=== PATIENT | male | born 2000 | race Two or more races ===

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

== ENCOUNTER 2024-11-19 20:00 | Emergency (ER) | payer OTHER, SELFPAY ==
--- NOTE | ~2024-11-19 | US_ITS ---
CLINICAL HISTORY: Right upper quadrant pain, mild gallbladder wall US abdomen limited Comparison: CT/SR - CT ABDOMEN PELVIS W IV CON - 11/20/24 00:40 EDT Findings: Limited images of the liver are unremarkable. No focal hepatic lesion is seen. There is no bile duct dilation. Common duct measures 5 mm in diameter. There are multiple small stones in the gallbladder. The gallbladder wall edema seen on the CT is not appreciated sonographically. There is no gallbladder wall thickening on ultrasound. The gallbladder is mildly distended. There is no sonographic Winslow sign. No free fluid is seen. IMPRESSION: Cholelithiasis and mild gallbladder distention. No additional findings of acute cholecystitis. Consider hepatobiliary scintigraphy if clinically indicated. This document has been electronically signed by: Fareed Cantu MD on 11/20/2024 03:42:01
--- NOTE | ~2024-11-19 | CT_ITS ---
CLINICAL HISTORY: RUQ, RLQ tenderness, rule out biliary disease, jesus CT abdomen and pelvis with contrast Comparison: None Findings: Lung bases clear. Mildly distended gallbladder. Mild gallbladder wall thickening. No biliary ductal dilatation. Remaining solid organs normal. No free fluid or free air. Stomach and bowel unremarkable. Bones intact. IMPRESSION: Mild gallbladder wall thickening and mild gallbladder distention. Correlate for cholecystitis. This document has been electronically signed by: Bc Butts MD on 11/20/2024 01:22:05
[2024-11-19 20:14] VITALS: BP 149/83; PULSE 81; RESP 16; TEMP 36.8; O2SAT 98; BMI 26.4
--- NOTE | 2024-11-19 20:17 | ED.GENADULT ---
HPI - General Adult General Chief complaint: Abdominal Pain Stated complaint: upper abd pain Time Seen by Provider: 11/19/24 23:17 Source: patient and family (Father, Jordi) Mode of arrival: ambulatory Limitations: no limitations History of Present Illness ED Provider: Dr. Mihir Paul HPI narrative: 24-year-old male who presents emergency department for evaluation of intermittent abdominal pain. The patient states that yesterday afternoon he developed upper abdominal pain. He states that it was a burning sensation and was greater than 10/10. He did have multiple episodes of vomiting yesterday. He states the pain eventually resolved. This morning he again developed abdominal pain in the same area. The pain was a burning sensation greater than 10/10. Patient had 6 episodes of vomiting. He states he has been able to drink fluid and eat but this makes the pain worse. He denied radiation of the pain to his back. He denied fever, chills, diarrhea, dark stools, bloody stools, frequency, urgency or dysuria. Related Data Previous Rx's ?Medication ?Instructions ?Recorded levofloxacin 500 mg tablet 500 mg PO DAILY 3 days #3 tabs 11/23/24 metronidazole 500 mg tablet 500 mg PO BID #10 tabs 11/23/24 Allergies Allergy/AdvReac Type Severity Reaction Status Date / Time amoxicillin Allergy Unknown Verified 11/23/24 14:11 Review of Systems Review of Systems: Yes all other systems are reviewed and are negative PMFSH Past Medical History Medical History (Updated 11/23/24 @ 14:11 by GINI Jean) Anxiety Gallstones Surgical History (Updated 11/23/24 @ 14:11 by GINI Jean) [place] teeth extracted Social History Social History (Updated 11/23/24 @ 14:12 by GINI Jean) Alcohol intake: never Patient Tobacco Use Status: Never used Tobacco Physical Exam ED Vital Signs: Vital Signs - 24 hr 11/19/24 20:14 11/19/24 23:57 11/20/24 01:58 Temperature 98.3 F 98.0 F 97.8 F Pulse Rate 81 73 72 Respiratory Rate 16 18 16 Blood Pressure 149/83 H 131/78 112/60 Pulse Oximetry 98 97 98 Oxygen Delivery Method Room Air Room Air Room Air BMI result Body Mass Index 26.4 Vital signs revealed elevated blood pressure of 149/83 Exam: General: Awake, alert, appears to be in mild distress secondary to his pain Head: Normocephalic, atraumatic EENT: PERRL, Lids normal, sclera normal, conjunctiva normal, nose normal , ears normal, throat without erythema or exudates Neck: Supple, no adenopathy Lung: breath sounds symmetric, no wheezing, rales or rhonchi Chest: symmetric movement, nontender Heart: regular rate and rhythm, normal S1, S2 no murmurs or rubs Abdomen: soft, moderate right upper quadrant tenderness with a positive Winslow sign, mild to moderate right lower quadrant tenderness, no rebound, no voluntary or involuntary guarding, nondistended, normal bowel sounds Back: no vertebral tenderness, no CVAT Extremities: no deformities, moves all extremities symmetrically Neuro: Awake, alert, oriented, normal speech, cranial nerves intact, moves all extremities symmetrically Psych: Pleasant, cooperative Course Course Course Narrative: Medical screening exam performed. Please refer to detailed history, exam, evaluation, and management by primary provider. 24-year-old male with epigastric pain intermittent nausea since yesterday. No tobacco or alcohol use. Labs ordered. Medications Administered Discontinued Medications Generic Name Dose Route Start Last Admin Trade Name Freq PRN Reason Stop Dose Admin Sodium Chloride 1,000 mls @ 999 mls/hr 11/19/24 23:30 11/19/24 23:57 Ns IV 11/20/24 00:30 999 mls/hr .Q1H1M STA Administration Iohexol 85 ml 11/20/24 00:55 11/20/24 00:56 Iohexol 350 Mg/Ml 100 Ml Infus..Btl IV 11/20/24 00:56 85 ml ONCE ONE Administration Ketorolac Tromethamine 15 mg 11/19/24 23:30 11/19/24 23:57 Ketorolac Tromethamine 15 Mg/Ml Vial IVPUSH 11/19/24 23:31 15 mg ONCE STA Administration Ondansetron HCl 4 mg 11/19/24 23:30 11/19/24 23:57 Ondansetron Hcl 4 Mg/2 Ml Vial IVPUSH 11/19/24 23:31 4 mg ONCE ONE Administration Medical Decision Making Medical Decision Making MDM Narrative: 24-year-old male who presents emergency department for evaluation of intermittent abdominal pain with a an episode yesterday and an episode occurring this morning which is ongoing. Patient describes the pain is a burning sensation which is greater than 10/10 associated with nausea and vomiting with no radiation of the pain. Patient states he has been able to eat and drink but this makes the pain worse. Vital signs were normal. Exam did reveal right upper quadrant and right lower quadrant tenderness. Differential diagnosis: ?Includes but is not limited to cholecystitis, biliary colic, gastritis, GERD, appendicitis, pancreatitis, anemia, electrolyte abnormalities Course: 23:38 My interpretation patient's laboratory evaluation is as follows: CBC was normal. CMP revealed an elevated glucose of 140. LFTs were normal. Lipase was normal. Patient he was treated with normal saline IV x1 L, Toradol 15 mg IV and Zofran 4 mg IV. I did order a CT abdomen pelvis with IV contrast to evaluate the patient's pain. 02:[address] scan of the abdomen pelvis is consistent with mild gallbladder wall thickening and mild gallbladder wall distention. I did order a right upper quadrant ultrasound to evaluate for possible gallstones. Patient was feeling significantly better after the above treatment and he was right upper quadrant tenderness is resolved. 04:00 the patient's right upper quadrant ultrasound revealed cholelithiasis and mild gallbladder distention. No additional findings of acute cholecystitis. given this finding of cholelithiasis I suspect the patient has been having biliary colic a but does not have acute cholecystitis at this time. The patient's pain is still present but his right upper quadrant tenderness has resolved. At this time I do not think the patient requires admission but can follow-up with our surgeon on-call, Dr. Jurado is for further evaluation of his abdominal pain and possible need for surgical intervention for biliary colic. Patient was discharged home and advised to take Tylenol and ibuprofen for pain. He was given instructions on low-fat diet and instructions on biliary colic. Admission/Observation Consideration of admission/observation: Escalation of care including admission/observation considered (Yes) Lab Data MDM Lab Attestation statement: I reviewed the patient's lab results. 11/19/24 20:20 11/19/24 20:20 Labs: Lab Results 11/19/24 11/20/24 Range/Units 20:20 00:09 WBC 7.1 (4.8-10.8) X10*3/uL RBC 5.21 (4.60-5.80) X10*6/uL Hgb 15.6 (14.0-18.0) g/dl Hct 43.7 (42.0-52.0) % MCV 83.9 (80.0-98.0) fL MCH 29.9 (27.0-33.0) pg MCHC 35.7 (31.0-36.0) g/dl RDW 12.3 (11.0-16.0) % Plt Count 277 (160-400) X10*3/uL MPV 9.0 L (9.4-12.4) fL Immature Gran % (Auto) 0.1 (0.0-0.4) % Neut % (Auto) 71.9 (45-73) % Lymph % (Auto) 18.8 L (20-40) % [place]ander % (Auto) 8.3 (2-11) % Eos % (Auto) 0.6 (0-4) % Baso % (Auto) 0.3 (0-2) % Lymph # (Auto) 1.3 (1.2-4.9) X10*3/uL [place] # (Auto) 0.6 (0.1-1.2) X10*3/uL Eos # (Auto) 0.0 (0.0-0.4) X10*3/uL Baso # (Auto) 0.0 (0.0-0.2) X10*3/uL Abs Immat Gran (auto) 0.01 (0.00-0.03) X10*3/uL Absolute Neuts (auto) 5.1 (2.0-8.3) x10*3/uL Absolute Nucleated RBC 0.000 (0.0-0.012) X10*3/uL Nucleated RBC % (auto) 0.0 (0.0-0.2) /100WBC Sodium 140 (135-145) mmol/L Potassium 3.7 (3.3-5.1) mmol/L Chloride 106 (96-108) mmol/L Carbon Dioxide 26 (22-29) mmol/L Anion Gap 12 (12-20) BUN 14 (9-16) mg/dL Creatinine 0.79 (0.5-1.4) mg/dL Estim Creat Clear Calc 121.7 Estimated GFR > 60 Random Glucose 140 H (60-115) mg/dL Calcium 9.8 (8.4-10.2) mg/dL Total Bilirubin 0.7 (0.0-1.0) mg/dL AST 21 (5-37) U/L ALT 15 (0-40) U/L Alkaline Phosphatase 55 (39-117) U/L Total Protein 7.8 (6.5-8.0) g/dL Albumin 5.0 (3.5-5.0) g/dL Lipase 28 (8-78) U/L Urine Color Yellow Urine Appearance Turbid Urine pH >= 9.0 (5.0-9.0) Ur Specific [place] 1.025 (1.005-1.025) Urine Protein 30 (1+) H (Neg-Trace) mg/dL Urine Glucose (UA) Negative (Negative) mg/dL Urine Ketones 40 (Negative) mg/dL Urine Blood Trace H (Negative) Urine Nitrite Negative (Negative) Ur Leukocyte Esterase Negative (Negative) Urine RBC >20 H (0-2) /HPF Urine WBC 0-5 (0-5) /HPF Ur Squamous Epith Cells 0-2 (0-2) /HPF Urine Bacteria None Seen (None Seen) Hyaline Casts 0-2 (0-2) /LPF Radiology Impression Discussion of test interpretation with radiology: I have reviewed the radiologist's reading. Radiologist Impression: CT abdomen and pelvis with contrast Comparison: None Findings: Lung bases clear. Mildly distended gallbladder. Mild gallbladder wall thickening. No biliary ductal dilatation. Remaining solid organs normal. No free fluid or free air. Stomach and bowel unremarkable. Bones intact. IMPRESSION: Mild gallbladder wall thickening and mild gallbladder distention. Correlate for cholecystitis. This document has been electronically signed by: Bc Butts MD on 11/20/2024 01:22:05 US abdomen limited Comparison: CT/SR - CT ABDOMEN PELVIS W IV CON - 11/20/24 00:40 EDT Findings: Limited images of the liver are unremarkable. No focal hepatic lesion is seen. There is no bile duct dilation. Common duct measures 5 mm in diameter. There are multiple small stones in the gallbladder. The gallbladder wall edema seen on the CT is not appreciated sonographically. There is no gallbladder wall thickening on ultrasound. The gallbladder is mildly distended. There is no sonographic Winslow sign. No free fluid is seen. IMPRESSION: Cholelithiasis and mild gallbladder distention. No additional findings of acute cholecystitis. Consider hepatobiliary scintigraphy if clinically indicated. This document has been electronically signed by: Fareed Cantu MD on 11/20/2024 03:42:01 Independent Historian Clinical information obtained from an independent historian. History obtained from or confirmed by: Parent (Father) Discharge Plan Discharge Clinical Impression: Biliary colic, Gallstone Patient Disposition: Home, Self-Care Instructions: Biliary Colic (ED), Low Fat Diet (ED) Additional Instructions: Your blood work was normal which is reassuring. The CT scan of your abdomen did reveal mild inflammation of your gallbladder. The ultrasound of your gallbladder revealed gallstones with no significant blockage of the drainage gallbladder. Your symptoms are consistent with a gallbladder attack (biliary colic). Need to stay on a low-fat diet. Take ibuprofen 200 mg pills, 2 pills every 6 hours as needed for pain or fever. Take Tylenol (acetaminophen) 500 mg pills, 2 pills every 6 hours as needed for pain or fever. I want you to follow-up with our on-call surgeon, Dr. Swann to discuss whether or not you need your gallbladder removed. Call his office on Thursday morning and let them know that you had a gallbladder attack and that you have gallstones that were noted on the ultrasound and inflammation of your gallbladder that was noted on the CT scan.. Please return to the emergency department if your symptoms get worse or if you develop any symptoms that are concerning to you. Prescriptions: No Action levofloxacin 500 mg tablet 500 mg PO DAILY 3 Days Qty: 3 0RF metronidazole 500 mg tablet 500 mg PO BID Qty: 10 0RF Referrals: Paco Swann MD [Physician] - 1 week (Biliary colic, LFTs and lipase normal, CT abdomen pelvis revealed mild gallbladder wall inflammation, ultrasound multiple gallstones, 1 and mobile gallstone, normal common bile duct.) Interventions: ED Discharge Assessment Last Done: 11/20/24 06:11 Discharge Date/Time: 11/20/24 03:33 Print Language: Upper Sorbian
[2024-11-19 20:27] LABS: MANUAL DIFF FLAG NO
[2024-11-19 20:28] LABS: Basophils Percent Auto 0.3 % (0-2); Eosinophils Percent Auto 0.6 % (0-4); Hematocrit 43.7 % (42.0-52.0); Hemoglobin 15.6 g/dl (14.0-18.0); Imm Gran Abs Auto 0.01 X10*3/uL (0.00-0.03); Imm Gran Pct Auto 0.1 % (0.0-0.4); Lymphocytes Absolute Auto 1.3 X10*3/uL (1.2-4.9); Lymphocytes Percent Auto 18.8 % (20-40); Mean Corpuscular HGB Conc 35.7 g/dl (31.0-36.0); Mean Corpuscular Hemoglobin 29.9 pg (27.0-33.0); Mean Corpuscular Volume 83.9 fL (80.0-98.0); Monocytes Absolute Auto 0.6 X10*3/uL (0.1-1.2); Monocytes Percent Auto 8.3 % (2-11); Neutrophils Absolute Auto 5.1 x10*3/uL (2.0-8.3); Neutrophils Percent Auto 71.9 % (45-73); Platelet Count 277 X10*3/uL (160-400); Red Blood Count 5.21 X10*6/uL (4.60-5.80); Red Cell Distribution Width 12.3 % (11.0-16.0); White Blood Count 7.1 X10*3/uL (4.8-10.8)
[2024-11-19 20:40] LABS: Alanine Aminotransferase 15 U/L (0-40); Alkaline Phosphatase 55 U/L (39-117); Anion Gap 12 (12-20); Aspartate Amino Transferase 21 U/L (5-37); Bilirubin Total 0.7 mg/dL (0.0-1.0); Blood Urea Nitrogen 14 mg/dL (9-16); Calcium 9.8 mg/dL (8.4-10.2); Carbon Dioxide 26 mmol/L (22-29); Chloride 106 mmol/L (96-108); Creatinine Clr Calc Pharmacy 121.7; Estimated Glomerular Filt Rate > 60; Glucose Random 140 mg/dL (60-115); Lipase 28 U/L (8-78); Potassium 3.7 mmol/L (3.3-5.1); Sodium 140 mmol/L (135-145); Total Protein 7.8 g/dL (6.5-8.0)
[2024-11-19 23:57] VITALS: BP 131/78; PULSE 73; RESP 18; TEMP 36.7; O2SAT 97
[2024-11-19] MEDS: 0.9 % Sodium Chloride 1,000 ML 999 ML IV (23:57)
[2024-11-19] MEDS: ondansetron HCL 4 MG/2 ML VIAL IVPUSH (23:57)
[2024-11-19] MEDS: Ketorolac Tromethamine 15 MG/ML VIAL IVPUSH (23:57)
[2024-11-20 00:14] LABS: Appearance Urine Turbid; Color Urine Yellow; Glucose Urine UA Negative (Negative); Leukocyte Esterase Urine Negative (Negative); Nitrite Urine Negative (Negative); PH >= 9.0 (5.0-9.0); Specific Gravity - Urine 1.025 (1.005-1.025); UMIC TRIGGER UA YES; Urine Blood Trace (Negative); Urine Ketones 40 mg/dL (Negative); Urine Protein 30 (1+) mg/dL (Neg-Trace)
[2024-11-20 00:16] LABS: Bacteria Urine None Seen (None Seen); Hyaline Casts Urine 0-2 /LPF (0-2); RBC Urine >20 /HPF (0-2); Squamous Epithelial Cell Urine 0-2 /HPF (0-2); WBC Urine 0-5 /HPF (0-5)
[2024-11-20] MEDS: iohexoL 350 MG/ML 100 ML INFUS..BTL 85 ML IV (00:56)
[2024-11-20 01:58] VITALS: BP 112/60; PULSE 72; RESP 16; TEMP 36.6; O2SAT 98
[2024-11-20 06:11] VITALS: BP 123/77; PULSE 72; RESP 17; TEMP 36.9; O2SAT 100
== END 2024-11-20 03:33 | disposition home or self-care (01) ==
PROVIDERS: Physician Assistant; Emergency Provider Emergency Medicine Emergency Medical Services
DX: K80.50 Calculus of bile duct without cholangitis or cholecystitis without obstruction (principal); K80.20 Calculus of gallbladder without cholecystitis without obstruction; R11.2 Nausea with vomiting, unspecified; R10.11 Right upper quadrant pain
CPT/HCPCS: 36415; 74177; 76705; 80053; 81001; 83690; 85025; 96374; 96375; 99284; 99285; J1885; J2405; Q9967

== ENCOUNTER → 2024-11-20 | Outpatient (BNV) | payer OTHER, SELFPAY | PROVIDERS: Emergency Provider Emergency Medicine Emergency Medical Services; Visit Provider Radiology Diagnostic Radiology | DX: R10.11 Right upper quadrant pain (principal); K80.80 Other cholelithiasis without obstruction | CPT/HCPCS: 74177; 76705 ==

== ENCOUNTER 2024-11-23 13:59 | Outpatient (AMB) | payer OTHER, SELFPAY ==
--- NOTE | 2024-11-23 14:02 | A.OFFVIS_ITS ---
Vital Signs 11/23/24 14:08 Height 5 ft 3.5 in Weight 150 lb BMI 26.2 BP 136/81 Blood Pressure Location Rt brachial Position Sitting Pulse 69 Intake Visit Reasons: Gallstones Intake Note: Patient referred after ED visit on 01-20-2025 for RUQ pain. Patient c/o: states RUQ pain has subsided but still bothersome. Denies nausea, diarrhea, constipation. ABD US: 11-20-2024 Cell Technician Required: No Accompanied by: Self / Same As Patient Allergies amoxicillin Allergy (Verified 11/23/24 14:11) Unknown HPI HPI Gallstones: Details: [age] year male referred for gallstones. He went to the ER last 11/19/2024 because of pain in the right upper quadrant. He had imaging studies with a CAT scan and ultrasound showed some thickening of the gallbladder wall with gallstones. These findings were suggestive of acute cholecystitis. However, his pain had resolved while he was in the ER. He was therefore discharged from there and referred to me . He denies any previous episodes. He describes some vague mild discomfort in the right upper quadrant [facility] Medical History (Updated 11/23/24 @ 14:11 by GINI Jean) Anxiety Gallstones Surgical History (Updated 11/23/24 @ 14:11 by GINI Jean) [place] teeth extracted Social History (Updated 11/23/24 @ 14:12 by GINI Jean) Alcohol intake: never Patient Tobacco Use Status: Never used Tobacco Review of Systems Const Denies chills and Denies fever(s) Card Denies chest pain, Denies dyspnea and Denies dyspnea on exertion Resp Denies cough, Denies dyspnea and Denies dyspnea on exertion GI Denies hematochezia and Denies change in bowel habits Denies hematuria and Denies difficulty urinating Musc Denies back pain and Denies limited range of motion Neuro Denies focal weakness and Denies convulsions Psych Denies depression and Denies mood swings Physical Exam Vital Signs: Last Vital Signs Pulse 69 11/23/24 14:08 BP 136/81 11/23/24 14:08 BMI result Body Mass Index 26.2 Const General: comfortable and no acute distress Orientation/consciousness: patient oriented x3 Neck Neck: Yes no lymphadenopathy Resp Auscultation: clear to auscultation bilaterally Cardio Rhythm: regular rhythm GI Other: No Winslow's sign Palpation (GI): Soft to palpation, nontender and no guarding Neuro General: patient oriented x3 Assessment & Plan Assessment & Plan (1) Gallstones: Code(s): K80.20 - Calculus of gallbladder without cholecystitis without obstruction Category: Medical Plan: He was in the ER last 11/19/2024 for an episode of right upper quadrant pain. His imaging studies were suggestive of acute calculous cholecystitis but his pain had resolved while he was in the ER. He does describe some discomfort in the right upper quadrant. He denies any nausea or vomiting. He has good oral intake. He denies any fever or chills. I explained to him the option of proceeding with cholecystectomy in view of his recent episode. I explained the technique of laparoscopic cholecystectomy and possible open cholecystectomy. I reviewed the risks including but not limited to bleeding, infections, injury to other organs including bowel, liver and the bile ducts, retained stones, bile leak, as well as the benefits and alternatives. He understands and wants to proceed. I reviewed with him what to expect postoperatively. I have prescribed him Levaquin and Flagyl in view of some residual symptoms and in view of the findings on imaging. Medications: New levofloxacin 500 mg PO DAILY 3 tabs 0RF 3 days metronidazole 500 mg PO BID 10 tabs 0RF Coding Level of Care Code New Pt Level 3 (33820) Diagnoses Gallstones K80.20
[2024-11-23 14:08] VITALS: BP 136/81; PULSE 69; BMI 26.2
--- OUTSIDE RECORDS SUMMARY | 2024-11-23 16:44 | XMS_ITS | Continuity of Care Document ---
Author Name [facility] Organization [facility] Care Team Providers Care Junction Maker Name Role Phone [facility] Unavailable Unavailable Vital Signs Combined list of inpatient and outpatient Vital Signs from Department of [facility] and [facility], ranging from 12 months to all on record, depending upon the facility. Vital Sign Value Date Comments Source Peripheral Pulse Rate 74 bpm 07/19/2024 13:19:[address] [place] [address] Systolic Blood Pressure 140 mm[Hg] 07/19/2024 13:19:[address] [place] [address] Diastolic Blood Pressure 90 mm[Hg] 07/19/2024 13:19:[address] [place] [address] Encounters Combined list of: 1) Encounters from [facility] facilities going backup to the last 18 months, not all [place] inpatient encounters are included; 2) Encounters from the [facility] facilities going backup to 280 months. Location Location Details Encounter Type Encounter Number Reason For Visit Attending Provider ADM Date DC Date Status Disposition Source Ambulator y Pharmacy [facility] [id number] 06/23 Ambulat ory Pharmac y [address] [place] Outside Documentat ion Only [id number] 06/23 Discharge Disposition: Home or Self Care [address] [facility] [place] Mass Readiness [id number] 07/19 Discharge Disposition: Home or Self Care [facility] Procedures Combined list of: 1) Procedures from Department of [facility] Affairs facilities going back up to thelast 18 months, not all [place] non-surgical procedures are included; 2) All procedures from the Department [facility] facilities. Procedure Procedure Type Code Date Perfomer Comments Sourc e No data available for this section Ambulatory P harmacy Social History Combined list of available smoking, tobacco, and other social history from [facility] and [facility] facilities. Social History Type Response Date Comment Sourc e Sexual Orientation Ambula tory Pharmacy Gender identity Ambulator y Pharmacy Sex Representation Male (finding) Un known Organization Assessment and Plan Combined list of future care activities from [facility] and [facility] facilities (e.g., assessment and plan notes, appointments, orders, and referrals). Additional future care activities may be listed in the Plan of Care section. Result Assessment and Plan Date Source Assessment and Plan Extracted from:Title : Education Note Author: TRAVIS LOONEY Date: 07/19/24 11/23/2024 [facility] Functional Status Combined list of recent functional and cognitive assessments recorded at [facility] ([place] Functional [place] Measurement (FIM) Scale: 1 = Total Assistance (Subject = 0% +), 2 = Maximal Assistance (Subject = 25% +), 3 = Moderate Assistance (Subject = 50% +), 4 = Minimal Assistance (Subject = 75% +), 5 = Supervision, 6 = Modified [place] (Device), 7 = Complete [place] (Timely, Safely). Assessment Date/Time Source Assessment Type Assessment Skill Assessment Score Assessment Details No data available for this section
== END 2024-11-23 14:24 | disposition home or self-care (01) ==
LOC: HO.HGS 14:00
PROVIDERS: Visit Provider Surgery
DX: K80.20 Calculus of gallbladder without cholecystitis without obstruction (principal)
CPT/HCPCS: 99203

== ENCOUNTER → 2024-11-23 13:59 | Outpatient (BNVA) | payer OTHER, SELFPAY | PROVIDERS: Visit Provider Surgery | DX: K80.20 Calculus of gallbladder without cholecystitis without obstruction (principal) | CPT/HCPCS: 99202 ==

== ENCOUNTER 2025-05-12 12:07 | Day surgery (SDC) | payer OTHER, SELFPAY ==
--- OUTSIDE RECORDS SUMMARY | 2025-04-17 14:01 | XMS_ITS | Continuity of Care Document ---
Author Name [facility] Organization [facility] Care Team Providers Care [place] Maintenance Technician Name Role Phone [facility] Unavailable Unavailable Vital Signs Combined list of inpatient and outpatient Vital Signs from Department of [facility] and [facility], ranging from 12 months to all on record, depending upon the facility. Vital Sign Value Date Comments Source Peripheral Pulse Rate 74 bpm 07/19/2024 13:19:[address] [place] [address] Systolic Blood Pressure 140 mm[Hg] 07/19/2024 13:19:[address] [place] [address] Diastolic Blood Pressure 90 mm[Hg] 07/19/2024 13:19:[address] [place] [address] Encounters Combined list of: 1) Encounters from [facility] facilities going backup to the last 18 months, not all [place] inpatient encounters are included; 2) Encounters from the [facility] facilities going backup to 280 months. Location Location Details Encounter Type Encounter Number Reason For Visit Attending Provider ADM Date DC Date Status Disposition Source Ambulator y Pharmacy [facility] [id number] 06/23 Ambulat ory Pharmac y [address] [place] Outside Documentat ion Only [id number] 06/23 Discharge Disposition: Home or Self Care [facility] [place] Mass Readiness [id number] 07/19 Discharge Disposition: Home or Self Care [facility] Procedures Combined list of: 1) Procedures from Department of [facility] facilities going back up to thelast 18 months, not all [place] non-surgical procedures are included; 2) All procedures from the Department [facility] facilities. Procedure Procedure Type Code Date Perfomer [...] Education Note Author: TRAVIS LOONEY Date: 07/19/24 04/17/2025 [facility] Functional Status Combined list of recent functional and cognitive assessments recorded at [facility] ([place] Functional [place] Measurement (FIM) Scale: 1 = Total Assistance (Subject = 0% +), 2 = Maximal Assistance (Subject = 25% +), 3 = Moderate Assistance (Subject = 50% +), 4 = Minimal Assistance (Subject = 75% +), 5 = Supervision, 6 = Modified [place] (Device), 7 = Complete [place] (Timely, Safely). Assessment Date/Time Source Assessment Type Assessment Skill Assessment Score Assessment Details No data available for this section
--- OUTSIDE RECORDS SUMMARY | 2025-04-17 14:02 | XMS_ITS | Clinical Summary ---
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 1 kit 03/27/2025 Active Active Problems Problem Noted Date Diagnosed Date Blood pressure elevated without history of HTN 0 03/27/2025 Assessment & Plan (03/27/2025 12:45 PM EDT): Repeated was still above 140/90, encouraged to start a low sodium diet, exercise as tolerated, will order a bp monitor follow up in 1 month Physical exam 03/27/2025 Assessment & Plan (03/27/2025 12:46 PM EDT): Unremarkable examination, no thyroid nodules, no heart murmurs, will order routine blood test for follow up Encounter for medical examination to establish c are 12/19/2024 Assessment & Plan (12/19/2024 3:03 PM EDT): Last pcp visit 2 years ER: 10/2024 gallbladder pain Hospitalization: - PmHX: - Pshx: left tympanostomy tube All: PNC Meds: - Symptomatic cholelithiasis 12/19/2024 Assessment & Plan (12/19/2024 3:17 PM EDT): Seen at er found with gallstones, but with constant pain, denied fever/chills, nausea/vomiting, will refer to surgery for evalaution Encounters Date Type Department Care Team Description 04/04/2025 Telephone [facility] [address] [place] [address] Nick Park MD Letter for School/Work 03/27/2025 10:30 AM EDT Office Visit [facility] [address] [place] [address] Nick Park MD Blood pressure elevated without history of HTN (Primary Dx); Dietary counseling; Exercise counseling; Physical exam 03/27/2025 Travel 03/24/2025 Telephone [facility] [address] [place] [address] Nick Park MD chart prep 03/20/2025 Patient Outreach [facility] [address] [place] [address] Nick Park MD Pre-visit Planning (SDOH screening negative and Tobacco screening negative) from Last 3 Months Family History Medical History Relation Name Comments Diabetes Father Cancer Neg Hx Relation Name Status Comments Father Social History Tobacco Use Types Packs/Day Years Used Date Smoking Tobacco: Never Smokeless Tobacco: Never Tobacco Cessation:Counseling Given: Not Answered Alcohol Use Standard Drinks/Week Comments Never 0 (1 standard drink = 0.6 oz pur e alcohol) Housing Stability Answer Date Recorded What is your housing situation today? I have sina morin 03/20/[address] you li ve. Do you have problems with any of the following? None of the above 03/20/2025 Food Insecurity Answer Date Recorded Within the past 12 months, y ou worried that your food would run out before you got money to buy more: Never True 03/20/2025 Within the past 12 months,th e food you bought just didn't last and you didn't have enough money to get more: Never True Transportation Answer Date Recorded In the past 12 months, has l ack of transportation kept you from medical appts, meetings, work or from getting things needed for daily living? No 03/20/2025 Utilities Answer Date Recorded In the past 12 months, has t he electric, gas, oil or water company threatened to shut off services in your home? No 03/20/2025 Internet Access Answer Date Recorded Internet Access Q1 Yes 03/20/2025 Internet Access Q2 Not on file 03/20/2025 Sex and Gender Information Value Date Recorded Sex Assigned at Male 12/01/2024 3:22 PM EDT Legal Sex Male 3:20 PM EDT Gender Identity Male 12/01/2024 3:22 PM EDT Sexual Orientation Straight 12/16/2024 9: 54 AM EDT Last Filed Vital Signs Vital Sign Reading Time Taken Comments Blood Pressure 142/108 03/27/2025 10:38 AM EDT Pulse 80 03/27/2025 10:38 AM EDT Temperature 36.6 C (97.9 F) 03/27/2025 10:38 AM EDT Respiratory Rate 20 03/27/2025 10:38 AM EDT Oxygen Saturation - - Inhaled Oxygen Concentration - - Weight 68.5 kg (151 lb) 03/27/2025 10:38 AM EDT Height 160 cm (5' 3 ) 03/27/2025 10:38 AM EDT Body Mass Index 26.75 03/27/2025 10:38 AM EDT Plan of Treatment Upcoming Encounters Date Type Department Care Team (Late st Contact Info) Description 04/27/2025 11:30 AM EDT Telemedicine [facility] [address] [place] [address] Nick Park MD [address] [place] [address] Health Maintenance Due Date Last Done Comments Depression Screening 2001 HIV Screening 2001 Disability Screening 2001 Alcohol/Substance Use Screening 2013 Family Planning (PISQ) 2016 Hepatitis C Screening 2019 Pneumococcal Vaccine: Pediatrics (0 to 5 Years) and At-Risk Patients (6 to 49) Years (1 of 2 - PCV) 2020 09/21/2002, 2001, 2001 COVID-19 Vaccine ( season) 2024 10/17/2022, 02/27/2021, 02/06/2021 Influenza Vaccine (#1) 2025 , 06/25/2017, 05/29/2016, Additional history exists Tobacco Screening 12/19/2025 12/19/2024 SDOH Screening 03/20/2026 03/20/2025 DTaP/Tdap/Td Vaccines (9 - Td or Tdap) 10/10/2032 10/10/2022, 10/10/2022, 05/12/2012, Additional history exists Zoster Vaccines (1 of 2) 2051 RSV Patients and Patients Aged 60 years or older (1 - 1-dose 75+ series) 2076 HIB Vaccines Completed 05/19/2002, 04/0 04/2002, 2001, Additional history exists IPV Vaccines Completed 03/18/2005, 04/25, 2001, Additional history exists HPV Vaccines Completed 11/13/2014, 09/25, 07/08/2013 Hepatitis A Vaccines Completed 05/04/2017, 07/21/20 16 Meningococcal Vaccine Completed 05/04/2017, 012 Hepatitis B Vaccines Completed 10/16/2022, 2001, 2001, Additional history exists Meningococcal B Vaccine Aged Out No l onger eligible based on patient's age to complete this topic RSV under 20 months Aged Out No longe r eligible based on patient's age to complete this topic Rotavirus Vaccines Aged Out No longer eligible based on patient's age to complete [place] [id number] [facility] 3 Care Teams Lumber Chain Offbearer Relationship Specialty Start Date End Date Nick Park MD [address] [place] [address] CLEMENTE Rubi [id number] PCP - General Internal Medicine 12/19/24
[2025-05-10 09:34] VITALS: BMI 26.2
[2025-05-12] VITALS (10 sets, daily range): BP systolic 104–128; BP diastolic 49–85; PULSE 62–88; RESP 16–18; TEMP 36.6–37.1; O2SAT 95–99; BMI 25.8
--- NOTE | 2025-05-12 12:39 | P.CONAN_ITS ---
Documented by User: Grace Antonio NP 05/10/25 12:56 HPI - Anesthesia Eval Consult details Narrative: 25yo M for Cholecystectomy Laparoscopic,possible open PMFSH Active Problems Active Problems: All Active Problems Gallstones (Acute) Past Medical History Medical History Anxiety Gallstones Surgical History Surgical History (Updated 11/23/24 @ 14:11 by GINI Jean) [place] teeth extracted Social History Social History (Updated 11/23/24 @ 14:12 by GINI Jean) Are you a primary skin care therapist to a significant other at home: No Do you presently have visiting nurse or other home services: No Alcohol intake: never Patient Tobacco Use Status: Never used Tobacco Use of substances other than those prescribed or required for medical reasons: No Have you been hit, kicked, punched, or otherwise hurt by someone within the past year? If so, by whom?: No Are you DNR?: No Advance Directives: No Advance Directives Information Provided: Yes Poor oral hygiene: No Meds Allergies Allergy/AdvReac Type Severity Reaction Status Date / Time amoxicillin Allergy Mild Rash Verified 05/12/25 12:15 Exam Height,Weight and Vital Signs: Height 5 ft 3.5 in Weight 68.039 kg Assessment and Plan Assessment Anesthesia Assessment: Chart Reviewed Documented by User: Jasmyne Randle DO 05/12/25 12:40 PMFSH Past Medical History Medical History Anxiety Gallstones Family History Family history of problems with anesthesia: No Surgical History Surgical History (Updated 11/23/24 @ 14:11 by GINI Jean) [place] teeth extracted History of Problems with Anesthesia: No Social History Social History (Updated 11/23/24 @ 14:12 by GINI Jean) Are you a primary skin care therapist to a significant other at home: No Do you presently have visiting nurse or other home services: No Alcohol intake: never Patient Tobacco Use Status: Never used Tobacco Use of substances other than those prescribed or required for medical reasons: No Have you been hit, kicked, punched, or otherwise hurt by someone within the past year? If so, by whom?: No Are you DNR?: No Advance Directives: No Advance Directives Information Provided: Yes Poor oral hygiene: No Meds Allergies Allergy/AdvReac Type Severity Reaction Status Date / Time amoxicillin Allergy Mild Rash Verified 05/12/25 12:15 Exam Exam Date and Time: 05/12/25 1236 Airway Mallampati Class: I TM Dist: >3cm Neck ROM: Full Heart: S1S2 Lungs: CTAB Assessment and Plan Assessment Anesthesia Assessment: Anesthesia Plan Discussed and Chart Reviewed Final Anesthetic Review Family History of Problems with Anesthesia: No History of Problems with Anesthesia: No NPO: Yes ASA Class: I Final Preanesthetic Review: No Changes in Pt Med Stat, Meds/Allgs Chart Reviewed, Consent Obtained/Reviewed and Anes Risks/Benef Reviewed Patient Risk: Low Procedure Risk: Intermediate Anesthetic Plan Anesthetic Plan: GA and Agree w/ Assess. and Plan Disposition: Standard PACU
--- NOTE | 2025-05-12 12:46 | MHC.SHP ---
Pre-Procedural Eval Section A - 24 Hr Update-Section A only Date of Service: 05/12/25 Section B - Complete if H&P > 30 days Chief Complaint: Calculus of gallbladder without cholecystitis Details of Present Illness: has gallstones, had episode of cholecystitis in October, Relevant Social History: None Present Medications: see Short Stay Collaborative assessment Medical History: No relevant PMH Allergies: Allergies Allergy/AdvReac Type Severity Reaction Status Date / Time amoxicillin Allergy Mild Rash Verified 05/12/25 12:15 Review of Systems Sugical H&P ROS: Negative: Constitution, Cardiovascular and Respiratory Exam Surgical H&P Exam: Normal: Heart, Normal: Lungs and Normal: Abdomen Plan Diagnosis/Plan: Unchanged I have reviewed the history and physical and performed a pertinent physical examination on my patient. No changes have occurred unless specified. Time Spent With Patient Time: Total time managing care of this patient today ____ minutes.
[2025-05-12] MEDS: Lactated Ringers 1,000 ML 100 ML IVCONT (12:48)
[2025-05-12] MEDS: cefoTEtan disodium 2 GM VIAL IVPUSH (13:08)
--- NOTE | 2025-05-12 14:45 | P.OP_ITS ---
Operative Note Operative Note Date of Service: 05/12/25 Narrative: Preop diagnosis: Gallstones with previous cholecystitis Postop diagnosis: The same Procedure: Laparoscopic cholecystectomy Surgeon: Paco Swann MD assistant speech language pathologist: RODRÍGUEZ Bermudez The patient is a 25-year-old male who had gone to the ER last October, because of abdominal pain and was diagnosed to have acute cholecystitis. At that time, he had improved significantly in the ED and was discharged from there He saw me in the office and wanted to proceed with laparoscopic cholecystectomy. He understood the technique of the planned procedure as was the risks, benefits, and alternatives He was brought to the operating room and placed supine under general anesthesia via endotracheal tube. The abdomen was prepped and draped in the usual sterile fashion. A surgical time-out was done. The patient received Cefotan 2 g IV preoperatively. I made a small supraumbilical incision with a blade 15. This was carried down through the full-thickness of the skin and subcutaneous fat. The peritoneum was entered. Through this incision a Sosa port was introduced. Pneumoperitoneum was introduced to a pressure of 15 mm Hg. From here on the rest of procedure was done under vision with the 10 mm laparoscope. With laparoscopic visualization and inserted a 5/12 mm port in the epigastric area below the subcostal margin. Two 5 mm ports introduced a small incision below the subcostal margin along the anterior axillary line midclavicular line. Graspers were placed through the working ports and the patient is placed in a head up and [id number] position. With laparoscopic visualization we are able to apply a grasper towards the fundus of the gallbladder to retract this cephalad. The anterior wall of the gallbladder was noted to have adhesions consistent with his previous cholecystitis. I had to carefully dissect these adhesions with the [place] dissector and electrocautery to peel these off of the gallbladder until we are able to expose the entire anterior wall of the gallbladder. I was able to apply another grasper towards the pouch to retract the gallbladder laterally. At this point the gallbladder was retracted in the cephalad and lateral fashion to put the area of the cystic duct on stretch. We carefully dissected the neck to expose the cystic duct. We dissected the cystic artery and by doing so we are able to achieve a critical view of the hepatocystic triangle. The cystic artery was also carefully identified. With the confluence of the cystic duct with the neck of the gallbladder confirmed, I applied clips on the cystic duct with 2 clips being applied distally. The cystic duct was transected between clips with Endo scissors. I gently dissected the cystic artery and the applied clips on this as well. This was divided between clips with Endo scissors as well We traction on the gallbladder away from the liver bed I then proceeded to gently dissect the hilum using the hook electrocautery. I incised the peritoneum of the gallbladder and carefully developed a plane of dissection between the gallbladder wall and the liver bed. Dissection was a little difficult in some of the areas of the wall in view of his previous cholecystitis. Eventually we are able to carefully and completely separate the gallbladder and this was retrieved through an endobag through the umbilical incision. I reinserted all ports and re-insufflated At this point we noted clots on 1 area under the umbilical port site. We examined this carefully and there appeared to be a bleeding area from the mesentery of an adjacent small bowel loop. I clamped this for a few sec with the dissector. We then proceeded to change the patient positioned to allow better visualization of this area. We examined all 4 quadrants. There was note of clots on this same area on the small bowel underneath the umbilical port site. We copiously irrigated and suctioned the irrigant fluid. We continued to look for any particular bleeder but at some point, we night identify any bleeding area. We observed for actually about 20 minutes to make sure that we had good hemostasis. After 20 minutes, it did not appear that there was any significant bleeding area The subhepatic space was also dry. Once hemostasis seemed to be confirmed on throughout the abdominal cavity, I proceeded to desufflated the port sites. I removed all ports under vision with the laparoscope. I removed the umbilical port last. I examined the small bowel loops underneath the umbilical port site and this remained dry I therefore was the fascia of the umbilical incision with a [id number] P olysorb 0 stitch. Skin closure was achieved with a all incisions using Polysorb 4-0 subcuticular running sutures. All incisions were infiltrated with Marcaine 0.5% for postop analgesia. Dressings were applied and the procedure was completed The patient tolerated procedure well. There were no immediate complications. Initial and final counts of sponges and instruments were correct. Estimated blood loss was about 150 cc The patient was extubated without difficulty and transferred to the recovery room with stable vital signs
== END 2025-05-12 16:02 | disposition home or self-care (01) ==
PROVIDERS: PCP Internal Medicine; Visit Provider Surgery
PROC: 0FT44ZZ Resection of Gallbladder, Percutaneous Endoscopic Approach (ICD-10-PCS; CPT 47562; principal; 2025-05-12 13:40)
DX: K80.10 Calculus of gallbladder with chronic cholecystitis without obstruction (principal); K82.8 Other specified diseases of gallbladder; Z87.19 Personal history of other diseases of the digestive system; F41.9 Anxiety disorder, unspecified; Z79.899 Other long term (current) drug therapy; Z88.1 Allergy status to other antibiotic agents
CPT/HCPCS: 47562; 88304; J0131; J1100; J1171; J1630; J1885; J2003; J2250; J2371; J2405; J2704; J2795; J3010

== ENCOUNTER → 2025-05-12 12:07 | Outpatient (BNV) | payer OTHER, SELFPAY | PROVIDERS: PCP Internal Medicine; Visit Provider Surgery | DX: K80.00 Calculus of gallbladder with acute cholecystitis without obstruction (principal) | CPT/HCPCS: 47562 ==

== ENCOUNTER 2025-05-16 15:09 | Outpatient (AMB) | payer OTHER, SELFPAY ==
--- OUTSIDE RECORDS SUMMARY | 2025-05-11 11:30 | XMS_ITS | Encounter Summary ---
Author Organization [employer] Address [address] [place] [address] Care Team Providers Care Concession Supervisor Name Role Phone Nick Park MD Primary Care Prov ider Reason for Visit * Reason Comments Blood Pressure Check Hypertension Encounter Details Date Type Department Care Team ([facility] st Contact Info) Description 05/11/2025 11:30 AM EDT Telemedicine [facility] [address] [place] [address] Nick Park MD [address] [place] [address] Blood pressure elevated without history of HTN (Primary Dx) Social History Tobacco Use Types Packs/Day Years Used Date Smoking Tobacco: Never Smokeless Tobacco: Never Alcohol Use Standard Drinks/Week Comments Never 0 (1 standard drink = 0.6 oz pur e alcohol) Depression Answer Date Recorded Patient Health Questionnaire-9 Score 2 05/11/2025 Patient Health Questionnaire-9 Score 2 05/11/2025 Last PHQ-9: Questionnaire Data Not on file 0 05/11/2025 Housing Stability Answer Date Recorded What is [...] off services in your home? No 03/20/2025 Depression Answer Date Recorded Patient Health Questionnaire-2 Score 0 05/11/2025 Internet Access Answer Date Recorded Internet Access Q1 Yes 03/20/2025 Internet Access Q2 Not on file 03/20/2025 Sex and Gender Information Value Date Recorded Sex Assigned at Male 12/01/2024 3:22 PM EDT Legal Sex Male 3:20 PM EDT Gender Identity Male 12/01/2024 3:22 PM EDT Sexual Orientation Straight 12/16/2024 9: 54 AM EDT documented as of this encounter Last Filed Vital Signs Vital Sign Reading Time Taken Comments Blood Pressure 137/75 05/11/2025 10:38 AM EDT pe r patient, checked at home during visit Pulse 74 05/11/2025 10:38 AM EDT Temperature - - Respiratory Rate - - Oxygen Saturation - - Inhaled Oxygen Concentration - - Weight - - Height - - Body Mass Index - - documented in this encounter Functional Status * Over the past 2 weeks, how often have you been bothered by any of the following problems? Question Answer Date of Assessment Author Patient Health Questionnaire-2 Score 0 04/24 10:40 AM Naomi Cordoba [place] * Little interest or pleasure in doing things Answer Date of Assessment Author Not at all 05/11/2025 10:40 AM Naomi Cordoba [place] * Feeling down, depressed, or hopeless Answer Date of Assessment Author Not at all 05/11/2025 10:40 AM Naomi Cordoba [place] * Trouble falling or staying asleep, or sleeping too much Answer Date of Assessment Author Not at all 05/11/2025 10:40 AM Naomi Cordoba [place] * Feeling tired or having little energy Answer Date of Assessment Author Not at all 05/11/2025 10:40 AM Naomi Cordoba MA * Poor appetite or overeating Answer Date of Assessment Author Not at all 05/11/2025 10:40 AM Naomi Cordboa MA * Feeling bad about yourself - or that you are a failure or have let yourself or your family down Answer Date of Assessment Author Not at all 05/11/2025 10:40 AM Naomi Cordoba [place] * Trouble concentrating on things, such as reading the newspaper or watching television Answer Date of Assessment Author More than half the days 05/11/2025 10:40 AM Naomi Cordoba [place] * Moving or speaking so slowly that other people could have noticed? Or the opposite - being so fidgety or restless that you have been moving around a lot more than usual. Answer Date of Assessment Author Not at all 05/11/2025 10:40 AM Naomi Cordoba MA * Thoughts that you would be better off or hurting yourself in some way Answer Date of Assessment Author Not at all 05/11/2025 10:40 AM Naomi Cordoba MA * Patient Health Questionnaire-9 Score Answer Date of Assessment Author 2 05/11/2025 10:40 AM Naomi Cordoba MA * How difficult have these problems made it for you to do your work, take care of things at home, or get along with other people? Answer Date of Assessment Author Not difficult at all 05/11/2025 10:40 AM Naomi Flowers res, [place] documented as of this encounter Progress Notes * Nick Michael MD - 05/11/2025 11:30 AM EDT Subjective Patient ID: Derek Perrin is a 25 y.o. male who presents for Blood Pressure Check and Hypertension. Hypertension This is a chronic problem. The problem is controlled. Pertinent negatives include no chest pain, headaches, palpitations, peripheral edema or shortness of breath. Review of Systems Respiratory: Negative for shortness of breath. Cardiovascular: Negative for chest pain and palpitations. Neurological: Negative for headaches. Objective Physical Exam Neurological: General: No focal deficit present. Mental Status: He is oriented to person, place, and time. Psychiatric: Mood and Affect: Mood normal. Behavior: Behavior normal. Assessment/Plan Problem List Items Addressed This Visit Blood pressure elevated without history of HTN - Primary Blood pressure has remained stable, below 140/90, continue low sodium diet and exercise as tolerated, keep bp log, follow up in 1 year documented in this encounter Miscellaneous Notes * Assessment & Plan Note - Nick Michael MD - 05/11/2025 1:44 PM EDTAssociated Problem(s): Blood pressure elevated without history of HTN Blood pressure has remained stable, below 140/90, continue low sodium diet and exercise as tolerated, keep bp log, follow up in 1 year documented in this encounter Plan of Treatment Not on file documented as of this encounter Visit Diagnoses Diagnosis Blood pressure elevated without history of HTN- Primary documented in this encounter Additional Health Concerns Assessment Noted Time PHQ-9 Depression Total Score: 2 05/11/20 25 10:40 AM EDT documented as of this encounter Care Teams Concession Supervisor Relationship Specialty Start Date End Date Nick Park MD [address] [place] [id number] PCP - General Internal Medicine 12/19/24 documented as of this encounter
--- NOTE | 2025-05-16 16:16 | AM.OFFVISNUR ---
Intake Visit Reasons: wound check Allergies amoxicillin Allergy (Mild, Verified 05/12/25 12:15) Rash Nursing Note Pt reports to the office for wound check. He had attempted to remove a bandaid from the right lateral trocar site and it was stuck and I made it bleed . Upon arrival, bandaid was adhered to the steri strip and a very small drop of blood was present. Bandaid was removed, steri strip came with it, gauze used to wipe away blood. No active bleeding noted. New bandaid applied. Pt was advised he could remove this tomorrow, shower and replace the bandaid if he notices any bleeding or drainage. Pt will report to the office next week for his routine post op visit. He knows to call if he has any other concerns before then. Coding Level of Care Code Established Pt Est Pt Level 1 (35428) Patient Type Established History Problem Focused Exam Problem Focused Medical Decision Making Straight Forward Time Spent (min) 10 Comment wound assessment, dressing change and teaching
--- OUTSIDE RECORDS SUMMARY | 2025-05-16 18:09 | XMS_ITS | Encounter Summary ---
Author Organization [facility] Address [address] [place] [address] Care Team Providers Care Machine Compositor Name Role Phone Nick Park MD Primary Care Prov ider Encounter Details Date Type Department Care Team (Late st Contact Info) Description 05/12/2025 Orders Only GENERIC EXTERNAL DATA DEPARTMENT Provider, Generic External Data Social History Tobacco Use Types Packs/Day Years [...] AM EDT documented as of this encounter Plan of Treatment Not on file documented as of this encounter Procedures Procedure Name Priority Date/Time Associated Diagnosis Comments GROSS AND MICROSCOPIC LEVEL 3 Routine 05/12/2025 1:42 PM EDT documented in this encounter Results * Gross and Microscopic Level 3 (05/12/2025 1:42 PM EDT) 05/12/2025 1:42 PM EDT 05/12/2025 3:01 PM EDT Shantanu [facility] - 05/15/2025 6:05 PM EDT ----- ------- Name: Derek Perrin Age/Sex: 25/M : 2000 Unit#: [id number] Attend Dr: Paco Swann MD Re05/12/25 [place]: [facility] [place]: [place] Disch: ----- ------- SPEC : [id number] RECD: 05/12/25-9611 STATUS: BEVERLY CORTEZ NUM: [id number] ARI: 05/12/25 [facility] DR: Paco Swann MD ENTERED: 05/12/25 SP TYPE: Surgical OTHR DR: Nick Park MD ORDERED: Gross Micro L3 Diagnosis Gallbladder, cholecystectomy: Chronic cholecystitis; cholelithiasis. Clinical History Calculus of gallbladder without cholecystitis Microscopic Description Microscopic sections reviewed. Material Received Gallbladder Gross Description Received in formalin, in a plastic sleeve labeled gallbladder is an intact gallbladder measuring 10.5 x 3.5 x 2.4 cm. The outer surface is blue pink and smooth with adherent fibro vascular and yellow pink adipose tissue. The duct has been clamped shut. No periductal lymph node is identified. Opening the specimen reveals that the lumen contains yellow green bile and numerous multifaceted yellow choleliths ranging from 0.2- 0.7 cm in diameter. After evacuation of the contents the mucosal surface is red-pink with a velvety appearance. The gallbladder wall measures 0.1-0.2 cm in thickness. Coning Machine Operator sections of the duct, neck and body of the specimen are submitted for microscopic examination, 3 pieces in cassette A1. ([facility]) IHC S/NG Disclaimer NOTE: Unless otherwise stated, all tissue is formalin-fixed and paraffin-embedded. Some or all of the immunohistochemical tests reported herein may have been developed and their performance characteristics determined by [facility]. They have not been cleared or approved by the U.S. Food and Drug Administration (FDA). However, the FDA has determined that such clearance or approval is not necessary. This laboratory is certified under the Clinical Laboratory Improvement Amendments of 1988 (CLIA) as qualified to perform high complexity clinical laboratory testing. Copies To: Nick Park MD [address] [address] CONTINUED ON NEXT PAGE ----- ------- Name: Derek Perrin Age/Sex: 25/M : 2000 Unit#: [id number] Attend Dr: Paco Swann MD Re05/12/25 Status: [facility] [place] [facility] Disch: ----- ------- SPEC : [id number] RECD: 05/12/25 STATUS: BEVERLY CORTEZ NUM: [id number] ARI: 05/12/25 [facility] DR: Paco Swann MD ENTERED: 05/12/25 SP TYPE: Surgical OTHR DR: Nick Park MD ORDERED: Gross Micro L3 Copies To: (Continued) Paco Swann MD [facility] [address] [place] [address] ----- ------- Signed (signature on file) Donnie England MD 05/15/25 1805 ----- ------- END OF REPORT us Generic External Data Provider LAB CYTOLOGY ORDE RABLES Final Result [facility] [address] [place] [address] [phone] documented in this encounter Visit Diagnoses Not on filedocumented in this encounter Additional Health Concerns Assessment Noted Time PHQ-9 Depression Total Score: 2 05/11/20 25 10:40 AM EDT documented as of this encounter Care Teams Machine Compositor Relationship Specialty Start Date End Date Nick Park MD [address] [place] [phone] PCP - General Internal Medicine 12/19/24 documented as of this encounter
--- OUTSIDE RECORDS SUMMARY | 2025-05-16 18:09 | XMS_ITS | Encounter Summary ---
Author Organization [employer] Address [address] [place] [address] Care Team Providers Care Darkroom Technician Name Role Phone Nick Park MD Primary Care Prov ider Encounter Details Date Type Department Care Team (Latest Contact Info) Description 05/11/2025 Travel Social History Tobacco Use Types Packs/Day Years [...] AM EDT documented as of this encounter Functional Status * Over the [...] 10:40 AM Naomi Cordoba [place] * Feeling bad about yourself - [...] Author Not at all 05/11/2025 10:40 AM EDT Naomi Michael MA * Patient Health Questionnaire-9 Score Answer Date of Assessment Author 2 05/11/2025 10:40 AM EDT Naomi Michael [place] * How difficult have these problems made it for you to do your work, take care of things at home, or get along with other people? Answer Date of Assessment Author Not difficult at all 05/11/2025 10:40 AM EDT Naomi Mendiola res, [place] documented as of this encounter Plan of Treatment Not on file documented as of this encounter Visit Diagnoses Not on filedocumented in this encounter Additional Health Concerns Assessment Noted Time PHQ-9 Depression Total Score: 2 05/11/20 10:40 AM EDT documented as of this encounter Care Teams Darkroom Technician Relationship Specialty Start Date End Date Nick Park MD [address] [place] [phone] PCP - General Internal Medicine 12/19/24 documented as of this encounter
--- OUTSIDE RECORDS SUMMARY | 2025-05-16 18:09 | XMS_ITS | Clinical Summary ---
Author Organization [employer] Address [address] [place] [address] Care Team Providers Care Corporate Counsel Name Role Phone Nick Park MD Primary Care Prov ider Allergies Active Allergy Reactions Criticality Noted Date Comments Amoxicillin Rash Medium 05/11/2025 Medications Blood Pressure kit 1 kit Once per day. 1 kit 03/27/2025 Active Active Problems Problem Noted Date Diagnosed Date Blood pressure elevated without history of HTN 0 03/27/2025 Assessment & Plan (05/11/2025 1:44 PM EDT): Blood pressure has remained stable, below 140/90, continue low sodium diet and exercise as tolerated, keep bp log, follow up in 1 year Assessment & Plan (03/27/2025 12:45 PM EDT): [...] Encounters Date Type Department Care Team Description 05/12/2025 Orders Only GENERIC EXTERNAL DATA DEPARTMENT Provider, Generic External Data 05/11/2025 11:30 AM EDT Telemedicine [facility] [address] [place] [address] Nick Park MD Blood pressure elevated without history of HTN (Primary Dx) 05/11/2025 Travel 05/10/2025 Telephone [facility] [address] [place] [address] Nick Park MD chart prep 05/05/2025 Travel 04/25/2025 Travel 04/04/2025 Telephone [facility] [address] [place] [phone] Nick Park MD Letter for School/Work 03/27/2025 10:30 AM EDT Office Visit [facility] [address] [place] [address] Nick Park MD Blood pressure elevated without history of HTN (Primary Dx); Dietary counseling; Exercise counseling; Physical exam 03/27/2025 Travel 03/24/2025 Telephone [facility] [address] [place] [address] Nick Park MD chart prep 03/20/2025 Patient Outreach [facility] [address] [place] [phone] Nick Park MD Pre-visit Planning (SDOH screening [...] Blood Pressure 137/75 05/11/2025 10:38 AM EDT per patient, checked at home during visit Pulse 74 05/11/2025 10:38 AM EDT Temperature 36.6 C (97.9 F) 03/27/2025 10:38 AM EDT Respiratory Rate 20 03/27/2025 10:3 8 AM EDT Oxygen Saturation - - Inhaled Oxygen Concentration - - Weight 68.5 kg (151 lb) 03/27/2025 10:3 8 AM EDT Height 160 cm (5' 3 ) 03/27/2025 10:38 AM EDT Body Mass Index 26.75 03/27/2025 10:38 AM EDT Plan of Treatment Health Maintenance Due Date Last Done Comments HIV Screening 2001 Alcohol/Substance Use Screening 2013 Family Planning (PISQ) 2016 Hepatitis C Screening 2019 Pneumococcal Vaccine: Pediatrics (0 to 5 Years) and At-Risk Patients (6 to 49) Years (1 of 2 - PCV) 2020 09/21/2002, 2000, 2000 COVID-19 Vaccine ( season) 2025 10/17/2022, 02/27/2021, 02/06/2021 Influenza Vaccine (#1) 2025 , 06/25/2017, 05/29/2016, Additional history exists SDOH Screening 03/20/2026 03/20/2025 Disability Screening 04/25/2026 04/25/2025 Depression Screening 05/11/2026 05/11/2025, 05/11/20 25 Tobacco Screening 05/11/2026 05/11/2025 DTaP/Tdap/Td Vaccines (9 - Td or Tdap) 10/10/2032 10/10/2022, 10/10/2022, 05/12/2012, Additional history exists Zoster Vaccines (1 of 2) 2051 RSV Patients and Patients Aged 60 years or older (1 - 1-dose 75+ series) 2076 HIB Vaccines Completed 05/19/2002, 04/04/2002, 2001, Additional history exists IPV Vaccines Completed [...] on patient's age to complete this topic Procedures Procedure Name Priority Date/Time Associated Diagnosis Comments GROSS AND MICROSCOPIC LEVEL 3 Routine 05/12/2025 1:42 PM EDT from Last 3 Months Results * Gross and Microscopic Level 3 (05/12/2025 1:42 PM EDT) 05/12/2025 1:42 PM EDT 05/12/2025 3:01 PM EDT [facility] - 05/15/2025 6:05 PM EDT ----- ------- Name: AydinDerek M Age/Sex: 25/M : 2000 Unit#: [id number] Attend Dr: Paco Swann MD Re05/12/25 Status: [facility] Location: [facility] Disch: ----- ------- SPEC : [id number] RECD: 05/12/25 STATUS: BEVERLY CORTEZ NUM: [id number] ARI: 05/12/[address] [facility] [address]: Paco Swann MD ENTERED: 05/12/25 SP [...] gallbladder wall measures 0.1-0.2 cm in thickness. Diesel Truck Driver sections of the duct, neck and body of the specimen are submitted for microscopic examination, 3 pieces in cassette A1. ([facility]) IHC S/NG Disclaimer NOTE: Unless otherwise stated, all tissue is formalin-fixed and paraffin-embedded. Some or all of the immunohistochemical tests reported herein may have been developed and their performance characteristics determined by [facility]. They have not been cleared or approved by the U.S. Food and Drug Administration (FDA). However, the FDA has determined that such clearance or approval is not necessary. This laboratory is certified under the Clinical Laboratory Improvement Amendments of 1988 (CLIA) as qualified to perform high complexity clinical laboratory testing. Copies To: Nick Park MD [address] [address] CONTINUED ON NEXT PAGE ----- ------- Name: Derek Perrin Dany Age/Sex: 25/M : 2000 Unit#: [id number] Attend Dr: Paco Swann MD Re05/12/25 Status: [facility] Location: [facility] [place] Disch: ----- ------- SPEC : [id number] RECD: 05/12/25 STATUS: BEVERLY CORTEZ NUM: [id number] ARI: 05/12/[address] [facility] [address]: Paco Swann MD ENTERED: 05/12/25 SP TYPE: Surgical OTHR DR: Nick Park MD ORDERED: Gross Micro L3 Copies To: (Continued) Paco Swann MD [facility] Surgeons [address] [place] [address] ----- ------- Signed (signature on file) Donnie England MD 05/15/251804 ----- ------- END OF REPORT us Generic External Data Provider LAB CYTOLOGY BRUCE THOMPSON Final Result [facility] [address] [place] [address] [phone] from Last 3 Months [facility] Care Teams Corporate Counsel Relationship Specialty Start Date End Date Nick Park MD [address] [place] [address] CLEMENTE Rubi [id number] PCP - General Internal Medicine 12/19/24
== END 2025-05-16 16:15 | disposition home or self-care (01) ==
PROVIDERS: PCP Internal Medicine; Visit Provider Surgery
DX: Z48.817 Encounter for surgical aftercare following surgery on the skin and subcutaneous tissue (principal)
CPT/HCPCS: 99024

== ENCOUNTER → 2025-05-16 15:09 | Outpatient (BNVA) | payer OTHER, SELFPAY | PROVIDERS: PCP Internal Medicine; Visit Provider Surgery | DX: Z48.00 Encounter for change or removal of nonsurgical wound dressing (principal) | CPT/HCPCS: 99212 ==

== ENCOUNTER 2025-05-25 10:33 | Outpatient (AMB) | payer OTHER, SELFPAY ==
--- NOTE | 2025-05-25 10:34 | MHC.OFFVIS ---
Vital Signs 05/25/25 10:40 Weight 148 lb BP 136/89 Blood Pressure Location Rt brachial Position Sitting Pulse 65 Intake Visit Reasons: post lap arlyn Intake Note: Patient here s/p Laparoscopic cholecystectomy. Patient c/o: area on rt abdomen side feels sore and at times feels like sharp pain. No longer taking rx pain meds. Surgery: () 05-12-2025 Radio Tower Technician Required: No Accompanied by: Self / Same As Patient Allergies amoxicillin Allergy (Mild, Verified 05/25/25 10:40) Rash HPI Comments Details: Mr. Perrin is a 25 year old male who underwent laparoscopic cholecystectomy on 05/12/[address] Swann for gallstones with previous cholecystitis. He tolerated the procedure well. He thinks he is doing well overall. He took percocet for the first week post operatively and has not needed anything for pain. He does report some discomfort at the right lateral incision site that can occasionally become sharp. He does not think it is related to food intake but he is unsure as he has started to introduce some more fatty foods back into his diet but does report it is different then the pain he was experiencing prior to the surgery. He has began to increase his activity recently. He is tolerating a solid diet without nausea, vomiting. He denies fevers, chills. He is moving his bowels normally and denies diarrhea. COUNT INCLUDES [facility] Medical History Anxiety Gallstones Surgical History (Updated 05/25/25 @ 10:57 by Shweta Bermudez PA-C) Hx laparoscopic cholecystectomy (05/12/25) [place] teeth extracted Social History (Updated 11/23/24 @ 14:12 by GINI Jean) Are you a primary home care and home health aides teacher to a significant other at home: No Do you presently have visiting nurse or other home services: No Alcohol intake: never Patient Tobacco Use Status: Never used Tobacco Review of Systems Const All systems reviewed & are unremarkable except as noted in HPI and below Physical Exam Vital Signs: Last Vital Signs Pulse 65 05/25/25 10:40 BP 136/89 05/25/25 10:40 Const General: comfortable, no acute distress and alert Orientation/consciousness: patient oriented x3 Resp Effort & Inspection: normal respiratory effort GI Other: incision sites are well healed without erythema or edema abd soft, nondistended mild tenderness at right lateral Skin General skin exam: no rashes or lesions noted and no jaundice Neuro General: patient oriented x3 and moves all extremities Results Reviewed Results Reviewed: Gallbladder, cholecystectomy: Chronic cholecystitis; cholelithiasis Assessment & Plan Assessment & Plan (1) S/P laparoscopic cholecystectomy: Code(s): Z90.49 - Acquired absence of other specified parts of digestive tract Category: Surgical Plan 25 year old male who underwent laparoscopic cholecystectomy on 05/12/[address] Swann for gallstones with previous cholecystitis. He tolerated the procedure well. He continues to complain of pain at the right lateral port site. Abd exam shows a soft, nondistended abd with mild tenderness of the right lateral port site without RUQ tenderness. Incisions are all well healed, clean without evidence of infection. He was reassured that this likely is just incisional pain from the surgery. He is clinically appearing well and the pain appears to have no association with food intake. He was recommended to hold off on fatty foods for now to see if this helps. He was instructed to continue lifting restrictions for 2 more weeks. He can follow up at that time to ensure this pain has resolved. Coding Level of Care Code Global (98492) Diagnoses S/P laparoscopic cholecystectomy Z90.49
[2025-05-25 10:40] VITALS: BP 136/89; PULSE 65
--- OUTSIDE RECORDS SUMMARY | 2025-05-25 12:21 | XMS_ITS | Clinical Summary ---
Author Organization [employer] Address [address] [place] [address] Care Team Providers Care Clay Structure Builder And Servicer Name Role Phone Nick Park MD Primary [...] External Data 05/11/2025 11:30 AM EDT Telemedicine [facility] [address] [place] [address] Nick Park MD Blood pressure elevated without history of HTN (Primary Dx) 05/11/2025 Travel 05/10/2025 Telephone [facility] [address] [place] [address] Nick Park MD chart prep 05/05/2025 Travel 04/25/2025 Travel 04/04/2025 Telephone [facility] [address] [place] [phone] Nick Park MD Letter for School/Work 03/27/2025 10:30 AM EDT Office Visit [facility] [address] [place] [address] Nick Park MD Blood pressure elevated without history of HTN (Primary Dx); Dietary counseling; Exercise counseling; Physical exam 03/27/2025 Travel 03/24/2025 Telephone [facility] [address] [place] [address] Nick Park MD chart prep 03/20/2025 Patient Outreach [facility] [address] [place] [phone] Nick Park MD Pre-visit Planning (SDOH screening [...] 1:42 PM EDT 05/12/2025 3:01 PM EDT [facility] - 05/15/2025 6:05 PM EDT ----- ------- Name: AydinDerek M Age/Sex: 25/M : 2000 Unit#: [id number] Attend Dr: Paco Swann MD Re05/12/25 Status: [facility] Location: [facility] Disch: ----- ------- SPEC : [id number] RECD: 05/12/25 STATUS: BEVERLY CORTEZ NUM: [id number] ARI: 05/12/25 [facility] DR: Paco Swann MD ENTERED: 05/12/25 SP [...] gallbladder wall measures 0.1-0.2 cm in thickness. Bridge Instructor sections of the duct, neck and body of the specimen are submitted for microscopic examination, 3 pieces in cassette A1. ([facility]) IHC S/NG Disclaimer NOTE: Unless otherwise stated, all tissue is formalin-fixed and paraffin-embedded. Some or all of the immunohistochemical tests reported herein may have been developed and their performance characteristics determined by [facility]. They have not been cleared or approved by the U.S. Food and Drug Administration (FDA). However, the FDA has determined that such clearance or approval is not necessary. This laboratory is certified under the Clinical Laboratory Improvement Amendments of 1988 (CLIA) as qualified to perform high complexity clinical laboratory testing. Copies To: Nick Park MD [address] [address] CONTINUED ON NEXT PAGE ----- ------- Name: Derek Perrin Dany Age/Sex: 25/M : 2000 Unit#: [id number] Attend Dr: Paco Swann MD Re05/12/25 Status: [facility] Location: [facility] Disch: ----- ------- SPEC : [id number] RECD: 05/12/25 STATUS: BEVERLY CORTEZ NUM: [id number] ARI: 05/12/25 [facility] DR: Paco Swann MD ENTERED: 05/12/25 SP TYPE: Surgical OTHR DR: Nick Park MD ORDERED: Gross Micro L3 Copies To: (Continued) Paco Swann MD [facility] General Surgeons [address] [place] [address] ----- ------- Signed (signature on file) Donnie England MD 05/15/251804 ----- ------- END OF REPORT us Generic External Data Provider LAB CYTOLOGY BRUCE THOMPSON Final Result [facility] [address] [place] [address] [phone] from Last 3 Months Insurance [facility] [address] [place] [id number] Care Teams Clay Structure Builder And Servicer Relationship Specialty Start Date End Date Nick Park MD [address] [place] [address] CLEMENTE Rubi [id number] PCP - General Internal Medicine 12/19/24
== END 2025-05-25 11:00 | disposition home or self-care (01) ==
LOC: HO.HGS 10:33
PROVIDERS: PCP Internal Medicine; Visit Provider Physician Assistant Surgical
DX: Z90.49 Acquired absence of other specified parts of digestive tract (principal)
CPT/HCPCS: 99024

== ENCOUNTER → 2025-05-25 10:33 | Outpatient (BNVA) | payer OTHER, SELFPAY | PROVIDERS: PCP Internal Medicine; Visit Provider Physician Assistant Surgical | DX: Z90.49 Acquired absence of other specified parts of digestive tract (principal) | CPT/HCPCS: 99212 ==

== ENCOUNTER 2025-06-13 10:49 | Outpatient (AMB) | payer OTHER, SELFPAY ==
--- NOTE | 2025-06-13 10:50 | MHC.OFFVIS ---
Vital Signs 06/13/25 10:57 Weight 147 lb BP 139/76 Blood Pressure Location Rt brachial Position Sitting Pulse 69 Intake Visit Reasons: s/p lap ralyn Intake Note: Patient here for 2wk follow up. Last seen on 05-25-2025. S/p Laparoscopic cholecystectomy w/Dr. Swann on 05-12-2025. Patient c/o: on and off pain underneath abdominal incision. Pain gets worse when changing position from sitting to standing. Licensed Massage Therapist Required: No Accompanied by: Self / Same As Patient Allergies amoxicillin Allergy (Mild, Verified 06/13/25 10:56) Rash HPI HPI s/p lap arlyn: Details: Overall feels that he is doing well. He does describe some discomfort around the belly button when he bends over or if he is lying in his stomach. This happens most days and describes this as more of a discomfort than pain. He denies any changes to the skin surrounding the area or drainage. Denies fevers or chills. Otherwise his diet is back to normal. He has returned to his regular diet. Denies nausea or vomiting. Denies diarrhea or constipation. He has returned to work. Has questions about returning to activity [facility] Medical History Anxiety Gallstones Surgical History (Updated 05/25/25 @ 10:57 by Shweta Bermudez PA-C) Hx laparoscopic cholecystectomy (05/12/25) [place] teeth extracted Social History (Updated 11/23/24 @ 14:12 by GINI Jean) Are you a primary nurse behavioral health care to a significant other at home: No Do you presently have visiting nurse or other home services: No Alcohol intake: never Patient Tobacco Use Status: Never used Tobacco Physical Exam Vital Signs: Last Vital Signs Pulse 69 06/13/25 10:57 BP 139/76 06/13/25 10:57 Const General: comfortable and no acute distress Orientation/consciousness: patient oriented x3 Resp Effort & Inspection: normal respiratory effort and able to speak in complete sentences GI Other: Incision sites well healed. Umbilical incision has some deep induration, likely scar tissue, no fluctuance, no erythema minimally tender to palpation no hernia present Inspection: No distended Palpation (GI): Soft to palpation and nontender Neuro General: patient oriented x3 Assessment & Plan Assessment & Plan (1) S/P laparoscopic cholecystectomy: Code(s): Z90.49 - Acquired absence of other specified parts of digestive tract Category: Medical Plan 25-year-old male s/p laparoscopic cholecystectomy with Dr. Abraham on 05/12/2025 returning to the office for follow-up. Overall doing well but continues to have some pain at the umbilical incision site. States that this happens when he bends over, moves from this position or when he has prolonged lying on his stomach. He has not had any drainage from this area no other skin changes suggestive of infection. Otherwise his diet is at baseline, bowel function also at baseline. He has returned to work but has questions about pursuing a career in the [employer]. Wants to make sure that he is okay to increase his activity level. At this point he is over 4 weeks from surgery, no longer requiring activity restrictions, can slowly increase as tolerated. I recommend starting at half of his baseline and progressing towards his baseline level of activity. He is agreeable this plan. On exam the abdomen is soft and benign. Incisions appear to be healing well, no concern for infection at this time the. There was some deep induration at the umbilical incision site, reassured him that this is likely scar tissue and could be the cause of his discomfort. I recommended using warm compresses 2-3 times per day to help soften this area in attempt to alleviate his symptoms. At this point no longer requiring routine follow up. He can follow up as needed with any concerns future Coding Level of Care Code Global (35337) Diagnoses S/P laparoscopic cholecystectomy Z90.49
[2025-06-13 10:57] VITALS: BP 139/76; PULSE 69
--- OUTSIDE RECORDS SUMMARY | 2025-06-13 13:14 | XMS_ITS | Clinical Summary ---
Author Organization [employer] Address [address] [place] [address] Care Team Providers Care Cnp Name Role Phone Nick Park MD Primary [...] External Data 05/11/2025 11:30 AM EDT Telemedicine [facility] [address] [place] [address] Nick Park MD Blood pressure elevated without history of HTN (Primary Dx) 05/11/2025 Travel 05/10/2025 Telephone [facility] [address] [place] [address] Nick Park MD chart prep 05/05/2025 Travel 04/25/2025 Travel 04/04/2025 Telephone [facility] [address] [place] [phone] Nick Park MD Letter for School/Work 03/27/2025 10:30 AM EDT Office Visit [facility] [address] [place] [address] Nick Park MD Blood pressure elevated without history of HTN (Primary Dx); Dietary counseling; Exercise counseling; Physical exam 03/27/2025 Travel 03/24/2025 Telephone [facility] [address] [place] [address] Nick Park MD chart prep 03/20/2025 Patient Outreach [facility] [address] [place] [phone] Nick Park MD Pre-visit Planning (SDOH screening [...] AydinDerek M Age/Sex: 25/M : 2000 Unit#: [id number] Attend Dr: Paco Swann MD Re05/12/25 Status: [facility] Location: [facility] Disch: ----- ------- SPEC : [id number] RECD: 05/12/25 STATUS: BEVERLY CORTEZ NUM: [id number] ARI: 05/12/25 [facility] DR: Paco Swann MD ENTERED: 05/12/25 SP [...] gallbladder wall measures 0.1-0.2 cm in thickness. Nurse Executive sections of the duct, neck and body of the specimen are submitted for microscopic examination, 3 pieces in cassette A1. ([facility]) IHC S/NG Disclaimer NOTE: Unless otherwise stated, all tissue is formalin-fixed and paraffin-embedded. Some or all of the immunohistochemical tests reported herein may have been developed and their performance characteristics determined by [facility]. They have not been cleared or approved by the U.S. Food and Drug Administration (FDA). However, the FDA has determined that such clearance or approval is not necessary. This laboratory is certified under the Clinical Laboratory Improvement Amendments of 1988 (CLIA) as qualified to perform high complexity clinical laboratory testing. Copies To: Nick Park MD [address] [id number] CONTINUED ON NEXT PAGE ----- ------- Name: Derek Perrin Dany Age/Sex: 25/M : 2000 Unit#: [id number] Attend Dr: Paco Swann MD Re05/12/25 Status: [facility] Location: [facility] Disch: ----- ------- SPEC : [id number] RECD: 05/12/25 STATUS: BEVERLY CORTEZ NUM: [id number] ARI: 05/12/25 [facility] DR: Paco Swann MD ENTERED: 05/12/25 SP TYPE: Surgical OTHR DR: Nick Park MD ORDERED: Gross Micro L3 Copies To: (Continued) Paco Swann MD [facility] [address] [place] [address] ----- ------- Signed (signature on file) Donnie England MD 05/15/251804 ----- ------- END OF REPORT us Generic External Data Provider LAB CYTOLOGY BRUCE THOMPSON Final Result [facility] [address] [place] [address] [phone] from Last 3 Months [facility] [address] [place] [phone] Care Teams Cnp Relationship Specialty Start Date End Date Nick Park MD [address] [place] [address] CLEMENTE Rubi [phone] PCP - General Internal Medicine 12/19/24
== END 2025-06-13 11:01 | disposition home or self-care (01) ==
LOC: HO.HGS 10:49
PROVIDERS: PCP Internal Medicine
DX: Z90.49 Acquired absence of other specified parts of digestive tract (principal)
CPT/HCPCS: 99024

== ENCOUNTER → 2025-06-13 10:49 | Outpatient (BNVA) | payer OTHER, SELFPAY | PROVIDERS: PCP Internal Medicine | DX: Z48.815 Encounter for surgical aftercare following surgery on the digestive system (principal); R10.33 Periumbilical pain; Z98.890 Other specified postprocedural states; Z90.49 Acquired absence of other specified parts of digestive tract | CPT/HCPCS: 99212 ==